=== PATIENT | female | born 1940 | race Caucasian/White ===

== ENCOUNTER 2021-01-12 09:55 | Outpatient (CLI) | payer MEDICARE, SELFPAY ==
--- NOTE | ~2021-01-12 | DEXA_ITS ---
Bone Density Report Name: Rose Marie Caballero Age: 80 Sex: Female Ethnicity: White Date of : 1940 Indication: postmenopausal osteoporosis; height loss; Referring Provider: ODILIA SMITH Study: Bone densitometry was performed. Exam Date: January 12, 2021 Accession number: [id number] Bone Density: Region BMD T-score Z-score Classification AP Spine (L1, L2, L3) 0.764 -2.3 0.2 Osteopenia Femoral Neck (Left) 0.549 -2.7 -0.4 Osteoporosis Total Hip (Left) 0.668 -2.2 -0.2 Osteopenia Total Hip Bilateral Avg 0.685 -2.1 -0.1 Osteopenia Femoral Neck (Right) 0.551 -2.7 -0.4 Osteoporosis Total Hip (Right) 0.701 -2.0 0.0 Osteopenia World Health Organization criteria for BMD impression classify patients as: Normal (T-score at or above -1.0), Osteopenia (T-score between -1.0 and -2.5), or Osteoporosis (T-score at or below -2.5). 10-year Fracture Risk: FRAX not reported because: Some T-score for Spine Total or Hip Total or Femoral Neck at or below -2.5 Previous Exams: Region Exam Age BMD T-score BMD Change BMD Change Date g/cm2 vs Baseline vs Previous AP Spine(L1, L2, L3) 01/12/2021 80 0.764 -2.3 0.022(3.0%) 0.022(3.0%) 01/04/2019 78 0.742 -2.5 Total Hip(Left) 01/12/2021 80 0.668 -2.2 -0.004(-0.6%) -0.004(-0.6%) 01/04/2019 78 0.673 -2.2 Total Hip(Right) 01/12/2021 80 0.701 -2.0 -0.021(-2.9%) -0.021(-2.9%) 01/04/2019 78 0.722 -1.8 *Denotes significance at 95% confidence level, LSC for AP Spine = 0.022 g/cm2, LSC for Total Hip = 0.027 g/cm2 Clinical Information Provided by Patient: Has used the following medications: Vitamin D, Calcium Patient maximum height was 65 Menopause Age: 52 Onset of menses at age 16 Number of children 1 Impression: The patient has osteoporosis, based on the Left Femoral Neck T-score. No significant bone loss was observed. Discussion: INCREASED RISK OF FRACTURE. BONE DENSITY IS UNDESIRABLY LOW AT ONE OR MORE SKELETAL SITES, CONSISTENT WITH POSTMENOPAUSAL OSTEOPOROSIS. This patient's lowest T-score meets the World Health Organization's (WHO) criteria for osteoporosis at one or more sites (T-score -2.5 or below). In untreated patients, the risk of osteoporotic fracture increases approximately two-fold for each 1.0 SD decrease in T-score. Low bone density is not the only risk factor for fracture; also consider factors such as patient's age, frailty or poor health, risk of falling, risk of injury, previous osteopo
== END 2021-01-12 09:56 | disposition home or self-care (01) ==
LOC: ANHIMG 09:56
PROVIDERS: PCP Internal Medicine; Visit Provider Nurse Practitioner
DX: M81.0 Age-related osteoporosis without current pathological fracture (principal); M85.89 Other specified disorders of bone density and structure, multiple sites
CPT/HCPCS: 77080

== ENCOUNTER → 2021-10-18 09:16 | Outpatient (CLI) | payer MEDICARE, SELFPAY ==
--- NOTE | ~2021-10-18 | XR_ITS ---
EXAMINATION: XR knee LT 3V DATE: 10/18/2021 09:46 INDICATION: Left knee pain. TECHNIQUE: 3 views of left knee including standing views were obtained. COMPARISON: None. FINDINGS: Bone alignment is normal. No fracture. There is mild osteoarthritis of medial and patellofe moral compartments characterized by tiny osteophytes. No joint space narrowing. No knee joint effusio n. IMPRESSION: 1. Mild left knee osteoarthritis. Reviewed, dictated and finalized at location A.
== END ==
PROVIDERS: PCP Nurse Practitioner; Visit Provider Nurse Practitioner
DX: M17.12 Unilateral primary osteoarthritis, left knee (principal)
CPT/HCPCS: 73562

== ENCOUNTER → 2023-01-15 10:15 | Outpatient (CLI) | payer MEDICARE, SELFPAY ==
--- NOTE | ~2023-01-15 | DEXA_ITS ---
Bone Density Report Name: VIMAL ANGULO Age: 82 Sex: Female Ethnicity: White Date of : 1940 Indication: osteopenia; monitoring treatment; postmenopausal; height loss; Referring Provider: ODILIA SMITH Study: Bone densitometry was performed. Exam Date: January 15, 2023 Accession number: [id number] Bone Density: Region BMD T-score Z-score Classification AP Spine (L1-L4) 0.785 -2.4 0.3 Osteopenia Femoral Neck (Left) 0.508 -3.1 -0.7 Osteoporosis Total Hip (Left) 0.693 -2.0 0.1 Osteopenia Femoral Neck (Right) 0.542 -2.8 -0.4 Osteoporosis Total Hip (Right) 0.687 -2.1 0.0 Osteopenia Total Hip Mean 0.690 -2.1 0.1 Osteopenia World Health Organization criteria for BMD impression classify patients as: Normal (T-score at or above -1.0), Osteopenia (T-score between -1.0 and -2.5), or Osteoporosis (T-score at or below -2.5). 10-year Fracture Risk: FRAX not reported because: Some T-score for Spine Total or Hip Total or Femoral Neck at or below -2.5 Treated for osteoporosis Previous Exams: Region Exam Age BMD T-score BMD Change BMD Change Date g/cm2 vs Baseline vs Previous AP Spine(L1-L4) 01/15/2023 82 0.785 -2.4 -0.096 -0.066 10/23/2012 72 0.851 -1.8 -0.030* -0.030* 03/12/2010 70 0.881 -1.5 Total Hip(Left) 01/15/2023 82 0.693 -2.0 -0.114* -0.103* 10/23/2012 72 0.796 -1.2 -0.011 -0.011 03/12/2010 70 0.807 -1.1 Total Hip(Right) 01/15/2023 82 0.687 -2.1 -0.122* -0.115* 10/23/2012 72 0.802 -1.1 -0.007 -0.007 03/12/2010 70 0.808 -1.1 *Denotes significance at 95% confidence level, LSC for AP Spine = 0.022 g/cm2, LSC for Total Hip = 0.027 g/cm2 Clinical Information Provided by Patient: Is being treated for osteoporosis Has used the following medications: Fosamax (i.e. alendronate), Synthroid Patient maximum height was 65.5 Menopause Age: 54 No regular weight bearing exercise Onset of menses at age 14 Number of children 1 Impression: The patient has osteoporosis, based on the Left Femoral Neck T-score. The BMD for the Total Hip(Left) decreased, changing by -0.103 since the last DXA exam. The BMD for the Total Hip(Right) decreased, changing by -0.115 since the last DXA exam. Discussion: SIGNIFICANT BONE LOSS OBSERVED. Adherence to therapy (including calcium and vitamin D intake) should be assessed. If compliance is not
== END ==
PROVIDERS: PCP Internal Medicine; Visit Provider Nurse Practitioner
DX: M81.0 Age-related osteoporosis without current pathological fracture (principal); M85.89 Other specified disorders of bone density and structure, multiple sites
CPT/HCPCS: 77080

== ENCOUNTER 2023-09-24 11:09 | Outpatient (CLI) | payer MEDICARE, SELFPAY ==
--- NOTE | ~2023-09-24 | US_ITS ---
EXAMINATION: US venous doppler [facility] DATE: 09/24/2023 12:17 INDICATION: Left lower limb edema and swelling. TECHNIQUE: Grayscale ultrasound images without and with compression and Doppler ultrasound images of the left lower extremity veins were obtained. COMPARISON: None. FINDINGS: The visualized portions of left common femoral vein, profunda (deep) femoral vein, femoral vein, popl iteal vein, peroneal veins, posterior tibial veins, and greater saphenous vein outflow are patent. IMPRESSION: 1. No deep venous thrombosis. Reviewed, dictated and finalized at location A.
== END 2023-09-24 11:10 | disposition home or self-care (01) ==
PROVIDERS: PCP Nurse Practitioner; Visit Provider Nurse Practitioner
DX: R60.9 Edema, unspecified (principal)
CPT/HCPCS: 93971

== ENCOUNTER 2025-01-19 10:35 | Outpatient (CLI) | payer MEDICARE, SELFPAY ==
--- NOTE | ~2025-01-19 | DEXA_ITS ---
Bone Density Report Name: VIMAL ANGULO Age: 85 Sex: Female Ethnicity: White Date of : 1940 Indication: osteopenia; monitoring treatment; height loss; Referring Provider: ODILIA SMITH Study: Bone densitometry was performed. Exam Date: January 19, 2025 Accession number: [id number] Bone Density: Region BMD T-score Z-score Classification AP Spine(L1-L4) 0.838 -1.9 0.9 Osteopenia Femoral Neck (Left) 0.559 -2.6 -0.2 Osteoporosis Total Hip (Left) 0.675 -2.2 0.0 Osteopenia Femoral Neck (Right) 0.528 -2.9 -0.5 Osteoporosis Total Hip (Right) 0.670 -2.2 0.0 Osteopenia Total Hip Mean 0.673 -2.2 0.0 Osteopenia World Health Organization criteria for BMD impression classify patients as: Normal (T-score at or above -1.0), Osteopenia (T-score between -1.0 and -2.5), or Osteoporosis (T-score at or below -2.5). 10-year Fracture Risk: FRAX not reported because: Some T-score for Spine Total or Hip Total or Femoral Neck at or below -2.5 Treated for osteoporosis Previous Exams: -- Region Exam Age BMD T-score BMD Change BMD Change Date g/cm2 vs Baseline vs Previous -- AP Spine (L1-L4) 01/19/2025 85 0.838 -1.9 -4.8%# 6.8%* 01/15/2023 82 0.785 -2.4 -10.9%# -7.8%# 10/23/2012 72 0.851 -1.8 -3.4%* -3.4%* 03/12/2010 70 0.881 -1.5 Total Hip(Left) 01/19/2025 85 0.675 -2.2 -16.3%* -2.5% 01/15/2023 82 0.693 -2.0 -14.1%* -12.9%* 10/23/2012 72 0.796 -1.2 -1.4% -1.4% 03/12/2010 70 0.807 -1.1 Total Hip(Right) 01/19/2025 85 0.670 -2.2 -17.1%* -2.4% 01/15/2023 82 0.687 -2.1 -15.0%* -14.3%* 10/23/2012 72 0.802 -1.1 -0.8% -0.8% 03/12/2010 70 0.808 -1.1 -- *Denotes significance at 95% confidence level, LSC for AP Spine = 0.022 g/cm2, LSC for Total Hip = 0.027 g/cm2 # Denotes dissimilar scan types or analysis methods Clinical Information Provided by Patient: Is being treated for osteoporosis Has used the following medications: Fosamax (i.e. alendronate), Vitamin D Patient maximum height was 65 Menopause Age: 54 No regular weight bearing exercise Does not regularly consume dairy products Onset of menses at age 15 Number of children 1 Impression: The patient has osteoporosis, based on the Right Femoral Neck T-score. No significant bone loss was observed. Discussion: PATIENT UNDER TREATMENT WITH NO SIGNIFICANT BMD LOSS SINCE LAST EXAM. In an untreated patient, BMD typically declines with age. A lack of decline or gain is usually a sign that treatment is efficacious and fracture risk is reduced. It is important to ask patients whether they are taking their medications and to encourage continued and appropriate compliance with their osteoporosis therapies to reduce fracture risk. It is also important to review their risk factors and encourage appropriate calcium and vitamin D intakes, exercise, fall prevention and other lifestyle measures. Follow-Up: Consider a repeat BMD and Vertebral Fracture Assessment (VFA) exam in 2 years or sooner if medically necessary, to reassess this patient's status. Reported by: LUNA on 01/19/2025 10:53:00 AM. Reviewed, dictated and finalized at location A.
== END 2025-01-19 10:36 | disposition home or self-care (01) ==
LOC: MICIMG 10:35
PROVIDERS: PCP Nurse Practitioner; Visit Provider Nurse Practitioner
DX: M81.0 Age-related osteoporosis without current pathological fracture (principal); M85.89 Other specified disorders of bone density and structure, multiple sites
CPT/HCPCS: 77080

== ENCOUNTER 2025-05-24 00:58 | Emergency (ER) | payer MEDICARE, SELFPAY ==
--- NOTE | ~2025-05-24 | CT_ITS ---
EXAMINATION: CT abdomen pelvis w con DATE: 05/24/2025 01:56 INDICATION: Abdominal pain. TECHNIQUE: Computed tomography (CT) of the abdomen and pelvis was performed with 100 mL Omnipaque 350 intravenous contrast. Automated exposure control and iterative reconstruction technique were employed. The dose-length product was 307.17 mGy-cm. COMPARISON: None. FINDINGS: The visualized portions of the lung bases demonstrate mild atelectasis. No pleural effusion. The heart size is normal. No pericardial effusion. The liver and gallbladder are normal. Calcifications in the spleen are consistent with old granulomatous disease. The pancreas and adrenal glands are normal. There are cysts in the kidneys measuring up to 5 mm on the right. There are no dilated loops of bowel. The appendix is normal. There are no pathologically enlarged lymph nodes. There is no free intraperitoneal fluid. There is severe thoracic and lumbar spondylosis. IMPRESSION: 1. No etiology for the patient's symptoms. Reviewed, dictated and finalized at location E. [employer]
[2025-05-24 00:57] VITALS: BP 134/75; PULSE 93; RESP 18; TEMP 36.6; O2SAT 100
[2025-05-24 01:13] LABS: Hematocrit 44.2 % (37.0-47.0); Hemoglobin 14.6 g/dL (12.0-15.0); Immature Granulocyte Percent A 0.2 % (0-0.5); Lymphocytes Absolute Auto 1.07 K/mm3 (0.9-3.2); Mean Corpuscular HGB Conc 33.0 g/dl (32-36); Mean Corpuscular Hemoglobin 32.1 pg (26-34); Mean Corpuscular Volume 97.1 fl (80-100); Nucleated Red Blood Cells Absolute Auto 0.000 K/mm3 (0.0-0.012); Nucleated Red Blood Cells Perc 0.0 % (0.0-0.2); Platelet Count Result 252 k/mm3 (150-375); Red Blood Count 4.55 M/mm3 (4.2-5.4); White Blood Count 6.2 K/mm3 (4.5-10.0)
[2025-05-24 01:24] LABS: Alanine Aminotransferase 20 U/L (6-35); Albumin Level 4.7 g/dL (3.5-5.1); Alkaline Phosphatase 77 U/L (38-126); Anion Gap 7 mmol/L (4-12); Aspartate Amino Transferase 29 U/L (14-36); Bilirubin,Total 0.5 mg/dL (0.2-1.3); Blood Urea Nitrogen 22 mg/dL (7-17); Calcium 9.7 mg/dL (8.4-10.2); Carbon Dioxide 33 mmol/L (22-30); Chloride 99 mmol/L (98-107); Estimated Glomerular Filt Rate > 60; Glucose 106 mg/dL (65-110); Lipase 113 U/L (23-300); Potassium 3.9 mmol/L (3.4-5.0); Sodium 139 mmol/L (137-145); Total Protein 8.7 g/dL (6.3-8.2)
--- NOTE | 2025-05-24 01:49 | PC.NURSE ---
RN had pt attempt to give urine sample. Pt was unsuccessful at this time.
--- NOTE | 2025-05-24 02:06 | ED.ABDPAIN ---
HPI - Abdominal Pain General Chief Complaint: Abdominal Pain <AMBROSIO oHwe Last Filed: 05/25/25 17:17> Stated Complaint: LOW ABD PAIN, POSSIBLE CONSTIPATION <AMBROSIO Howe Last Filed: 05/25/25 17:17> Time Seen by Provider: 05/24/25 01:24 <AMBROSIO Howe Last Filed: 05/25/25 17:17> Source: patient and family <AMBROSIO Howe Last Filed: 05/25/25 17:17> Mode of arrival: ambulatory <AMBROSIO Howe Last Filed: 05/25/25 17:17> Limitations: no limitations <AMBROSIO Howe Last Filed: 05/25/25 17:17> History of Present Illness HPI narrative: This is an 85-year-old female that presents to the emergency department for abdominal pain. Ongoing over the last couple of days. Family member believe she may be constipated. She does not currently take any stool softeners or laxatives. Denies fevers, vomiting, dysuria. <AMBROSIO Howe Last Filed: 05/25/25 17:17> Related Data Home Medications: Home Medications ?Medication ?Instructions ?Recorded ?Confirmed ?Last Taken ?Type fluorometholone 0.1 % eye 1 drp EACH EYE DAILY 02/23/21 04/06/24 Unknown History drops,suspension <AMBROSIO Howe Last Filed: 05/25/25 17:17> Allergies/Adverse Reactions: Allergies Allergy/AdvReac Type Severity Reaction Status Date / Time Penicillins Allergy Mild Rash Verified 04/06/24 07:24 Sulfa (Sulfonamide Allergy Mild pt does Verified 04/06/24 07:24 Antibiotics) not remember <AMBROSIO Howe Last Filed: 05/25/25 17:17> Review of Systems Review of Systems: All systems reviewed & are unremarkable except as noted in HPI and below <AMBROSIO Howe Last Filed: 05/25/25 17:17> [facility] Past Medical History Medical History: Medical History Age-related osteoporosis without current pathological fracture Fuchs' adenoma of right eye Hypothyroidism, unspecified Vitamin D deficiency, unspecified <AMBROSIO Howe Last Filed: 05/25/25 17:17> Surgical History Surgical History: Surgical History History of eye surgery <AMBROSIO Howe Last Filed: 05/25/25 17:17> Family History Family History: Family History Father Family history of heart disease in male family member before age 55 Other Cerebrovascular accident Thyroid disorder <AMBROSIO Howe Last Filed: 05/25/25 17:17> Social History Social History: Social History (Updated 04/06/24 @ 07:23 by Alicia Iyer CMA) Second hand tobacco smoke exposure: Yes Alcohol intake: never Substance use: never Substance use type: does not use Current Housing: Decline to Answer Concerned About Future Housing: Decline to Answer Difficulty Paying Gas/Electric Bills: Decline to Answer Difficulty Paying for Meds: Decline to Answer Currently Unemployed: Decline to Answer Education: Decline to Answer Difficulty w/ Childcare or Family Care: Decline to Answer Living arrangements: alone Occupation/Education: retired Gender identity (if verbalized by the patient): Female Sexual Orientation (if Verbalized by the Patient): Straight or Heterosexual <AMBROSIO Howe Last Filed: 05/25/25 17:17> Exam Narrative: GENERAL: Well-appearing, well-nourished, and in no acute distress. HEAD: Normocephalic, atraumatic. EYES: EOMI. CHEST: Clear to auscultation. No respiratory distress. No wheezes rales or rhonchi HEART: Regular rate and rhythm. No murmur heard. Normal peripheral pulses. ABDOMEN: Soft, nontender, nondistended, normal active bowel sounds. EXTREMITIES: Normal range of motion. No edema. SKIN: Warm, dry, no rash. NEURO: No focal deficits. Alert and oriented x3. PSYCH: Normal mood and affect <Karrie Romero PA-C - Last Filed: 05/25/25 17:17> Course [employer]/PA Physician Supervision This visit was performed by both a physician and an Advanced Practice Provider. I performed all aspects of the Medical Decision Making as documented. <DO Azalia Aranda Last Filed: 05/24/25 05:46> Vital Signs Vital signs: Vital Signs Temperature 97.9 F 05/24/25 00:57 Pulse Rate 93 05/24/25 00:57 Respiratory Rate 18 05/24/25 00:57 Blood Pressure 134/75 05/24/25 00:57 Pulse Oximetry 100 05/24/25 00:57 Oxygen Delivery Room Air 05/24/25 00:57 Temperature 97.9 F 05/24/25 00:57 Pulse Rate 77 05/24/25 04:45 Respiratory Rate 19 05/24/25 04:45 Blood Pressure 118/68 05/24/25 04:45 Pulse Oximetry 99 05/24/25 04:45 Oxygen Delivery Room Air 05/24/25 00:57 <Karrie Romero PA-C - Last Filed: 05/25/25 17:17> Vital Signs Temperature 97.9 F 05/24/25 00:57 Pulse Rate 93 05/24/25 00:57 Respiratory Rate 18 05/24/25 00:57 Blood Pressure 134/75 05/24/25 00:57 Pulse Oximetry 100 05/24/25 00:57 Oxygen Delivery Room Air 05/24/25 00:57 Temperature 97.9 F 05/24/25 00:57 Pulse Rate 77 05/24/25 04:45 Respiratory Rate 19 05/24/25 04:45 Blood Pressure 118/68 05/24/25 04:45 Pulse Oximetry 99 05/24/25 04:45 Oxygen Delivery Room Air 05/24/25 00:57 <DO Azalia Aranda Last Filed: 05/24/25 05:46> MDM - Abdominal Pain MDM Narrative Medical decision making narrative: 85-year-old female Presenting for abdominal pain and constipation. On initial evaluation patient was in no acute distress afebrile, hemodynamic stable. Notable exam findings: Abdomen soft and nontender. Notable lab findings: CBC and CMP without significant abnormalities. Lipase within normal limits. UA clear. Notable imaging findings: CT abdomen/pelvis showed no acute findings. Patient initially seen by Karrie Romero in [place]. On my evaluation, patient was no longer in any pain. Suspect that there is some level of constipation causing her pain at this time. After discussing with the son, he states the patient does not drink very much water so there probably is some level of dehydration causing constipation. She was educated further on adequate p.o. hydration. She was given prescriptions for docusate and senna if needed. They were advised to follow up with her PCP in the next week for re-evaluation. Patient and family were agreeable to this plan. Given strict return precautions. <Bi Land DO - Last Filed: 05/24/25 05:46> Differential Diagnosis Differential diagnosis: Likely calculus of kidney, constipation, diverticulitis and other (UTI) <Karrie Romero PA-C - Last Filed: 05/25/25 17:17> Lab Data Attestation: I reviewed the patient's lab results. <Karrie Romero PA-C - Last Filed: 05/25/25 17:17> Result diagrams: 05/24/25 01:05 05/24/25 01:05 <Karrie Romero PA-C - Last Filed: 05/25/25 17:17> Labs: Lab Results 05/24/25 05/24/25 Range/Units 01:05 02:23 WBC 6.2 (4.5-10.0) K/mm3 RBC 4.55 (4.2-5.4) M/mm3 Hgb 14.6 (12.0-15.0) g/dL Hct 44.2 (37.0-47.0) % MCV 97.1 (80-100) fl MCH 32.1 (26-34) pg MCHC 33.0 (32-36) g/dl RDW 12.0 (11.5-14.5) % Plt Count 252 (150-375) k/mm3 MPV 10.5 H (7.4-10.4) fl Immature Gran % (Auto) 0.2 (0-0.5) % Neut % (Auto) 74.1 H (45.5-73.1) % Lymph % (Auto) 17.4 L (18.3-44.2) % Dawson % (Auto) 6.2 (2.6-8.5) % Eos % (Auto) 1.1 (0-4.4) % Baso % (Auto) 1.0 (0.2-1.2) % Lymph # (Auto) 1.07 (0.9-3.2) K/mm3 Dawson # (Auto) 0.4 (0.1-0.6) K/mm3 Eos # (Auto) 0.1 (0-0.3) K/mm3 Baso # (Auto) 0.1 (0.0-0.1) K/mm3 Abs Immat Gran (auto) 0.01 (0.00-0.031) K/mm3 Absolute Neuts (auto) 4.6 (1.3-6.7) K/mm3 Absolute Nucleated RBC 0.000 (0.0-0.012) K/mm3 Nucleated RBC % 0.0 (0.0-0.2) % Sodium 139 (137-145) mmol/L Potassium 3.9 (3.4-5.0) mmol/L Chloride 99 (98-107) mmol/L Carbon Dioxide 33 H (22-30) mmol/L Anion Gap 7 (4-12) mmol/L BUN 22 H (7-17) mg/dL Creatinine 0.71 (0.7-1.0) mg/dL Estim Creat Clear Calc Not Reportable Estimated GFR > 60 (59 - ) Glucose 106 (65-110) mg/dL Calcium 9.7 (8.4-10.2) mg/dL Total Bilirubin 0.5 (0.2-1.3) mg/dL AST 29 (14-36) U/L ALT 20 (6-35) U/L Alkaline Phosphatase 77 (38-126) U/L Total Protein 8.7 H (6.3-8.2) g/dL Albumin 4.7 (3.5-5.1) g/dL Lipase 113 (23-300) U/L Urine Color Yellow (Yellow) Urine Appearance Clear (Clear) Urine pH 5.5 (5.0-9.0) Ur Specific [place] > 1.045 H (1.001-1.035) Urine Protein Negative (Negative) mg/dL Urine Glucose (UA) Negative (Negative) mg/dL Urine Ketones Negative (Negative) mg/dL Ur Blood (Man) Negative (Negative) Urine Nitrate Negative (Negative) Urine Bilirubin Negative (Negative) Urine Urobilinogen 1.0 (<2.0) mg/dL Leukocyte Esterase Rfl Negative (Negative) ISAAC/UL <Karrie Romero PA-C - Last Filed: 05/25/25 17:17> Lab Results 05/24/25 05/24/25 Range/Units 01:05 02:23 WBC 6.2 (4.5-10.0) K/mm3 RBC 4.55 (4.2-5.4) M/mm3 Hgb 14.6 (12.0-15.0) g/dL Hct 44.2 (37.0-47.0) % MCV 97.1 (80-100) fl MCH 32.1 (26-34) pg MCHC 33.0 (32-36) g/dl RDW 12.0 (11.5-14.5) % Plt Count 252 (150-375) k/mm3 MPV 10.5 H (7.4-10.4) fl Immature Gran % (Auto) 0.2 (0-0.5) % Neut % (Auto) 74.1 H (45.5-73.1) % Lymph % (Auto) 17.4 L (18.3-44.2) % Dawson % (Auto) 6.2 (2.6-8.5) % Eos % (Auto) 1.1 (0-4.4) % Baso % (Auto) 1.0 (0.2-1.2) % Lymph # (Auto) 1.07 (0.9-3.2) K/mm3 Dawson # (Auto) 0.4 (0.1-0.6) K/mm3 Eos # (Auto) 0.1 (0-0.3) K/mm3 Baso # (Auto) 0.1 (0.0-0.1) K/mm3 Abs Immat Gran (auto) 0.01 (0.00-0.031) K/mm3 Absolute Neuts (auto) 4.6 (1.3-6.7) K/mm3 Absolute Nucleated RBC 0.000 (0.0-0.012) K/mm3 Nucleated RBC % 0.0 (0.0-0.2) % Sodium 139 (137-145) mmol/L Potassium 3.9 (3.4-5.0) mmol/L Chloride 99 (98-107) mmol/L Carbon Dioxide 33 H (22-30) mmol/L Anion Gap 7 (4-12) mmol/L BUN 22 H (7-17) mg/dL Creatinine 0.71 (0.7-1.0) mg/dL Estim Creat Clear Calc Not Reportable Estimated GFR > 60 (59 - ) Glucose 106 (65-110) mg/dL Calcium 9.7 (8.4-10.2) mg/dL Total Bilirubin 0.5 (0.2-1.3) mg/dL AST 29 (14-36) U/L ALT 20 (6-35) U/L Alkaline Phosphatase 77 (38-126) U/L Total Protein 8.7 H (6.3-8.2) g/dL Albumin 4.7 (3.5-5.1) g/dL Lipase 113 (23-300) U/L Urine Color Yellow (Yellow) Urine Appearance Clear (Clear) Urine pH 5.5 (5.0-9.0) Ur Specific [place] > 1.045 H (1.001-1.035) Urine Protein Negative (Negative) mg/dL Urine Glucose (UA) Negative (Negative) mg/dL Urine Ketones Negative (Negative) mg/dL Ur Blood (Man) Negative (Negative) Urine Nitrate Negative (Negative) Urine Bilirubin Negative (Negative) Urine Urobilinogen 1.0 (<2.0) mg/dL Leukocyte Esterase Rfl Negative (Negative) ISAAC/UL <Bi Land DO - Last Filed: 05/24/25 05:46> Imaging Data Attestation: I personally reviewed and interpreted this imaging study as follows: <Bi Land DO - Last Filed: 05/24/25 05:46> Radiologist's impression: ITS Impressions Abdomen/Pelvis CT 05/24/25 06:56 IMPRESSION: 1. No etiology for the patient's symptoms. <Karrie Romero PA-C - Last Filed: 05/25/25 17:17> ITS Impressions Abdomen/Pelvis CT 05/24/25 06:56 IMPRESSION: 1. No etiology for the patient's symptoms. CT abdomen/pelvis: No acute findings <DO Azalia Aranda Last Filed: 05/24/25 05:46> Critical Care Time Critical Care Time Critical Care Time: No <Karrie Romero PA-C - Last Filed: 05/25/25 17:17> Discharge Plan Discharge Clinical Impression: Abdominal pain Qualifiers: Abdominal location: unspecified location Qualified Code(s): R10.9 - Unspecified abdominal pain Constipation Qualifiers: Constipation type: unspecified constipation type Qualified Code(s): K59.00 - Constipation, unspecified <Karrie Romero PA-C - Last Filed: 05/25/25 17:17> Patient Disposition: Home <AMBROSIO Howe Last Filed: 05/25/25 17:17> Condition: Stable <AMBROSIO Howe Last Filed: 05/25/25 17:17> Instructions: Antibiotic Form, Constipation (ED), Abdominal Pain (ED) <AMBROSIO Howe Last Filed: 05/25/25 17:17> Additional Instructions: Your CT scan was reassuring. Your pain was likely due to constipation. Your given prescriptions for docusate and senna. Please be sure to drink plenty of water at least 32 oz daily but would recommend more like 72 oz. Follow-up with your PCP in the next week for re-evaluation. Return to the ED for any new or worsening symptoms. <Karrie Romero PA-C - Last Filed: 05/25/25 17:17> Patient Language: Austrian <Karrie Romero PA-C - Last Filed: 05/25/25 17:17> Prescriptions: New docusate sodium 100 mg capsule 100 mg PO DAILY PRN (Reason: constipation) Qty: 30 0RF senna 8.6 mg capsule 8.6 mg PO DAILY PRN (Reason: constipation) Qty: 30 0RF No Action fluorometholone 0.1 % drops,suspension 1 drp EACH EYE DAILY alendronate 70 mg tablet See Rx Instructions .ROUTE .COMPLEX Qty: 12 3RF Dose Instruction: TAKE 1 TABLET BY MOUTH WEEKLY WITH 8 OZ OF PLAIN WATER 30 MINUTES BEFORE FIRST FOOD, DRINK OR MEDS. STAY UPRIGHT FOR 30 MINS Rx Instructions: TAKE 1 TABLET BY MOUTH WEEKLY WITH 8 OZ OF PLAIN WATER 30 MINUTES BEFORE FIRST FOOD, DRINK OR MEDS. STAY UPRIGHT FOR 30 MINS levothyroxine [Synthroid] 75 mcg tablet See Rx Instructions .ROUTE .COMPLEX Qty: 90 3RF Dose Instruction: TAKE 1 TABLET BY MOUTH DAILY Rx Instructions: TAKE 1 TABLET BY MOUTH DAILY <Karrie Romero PA-C - Last Filed: 05/25/25 17:17> Follow-up/Referrals: Abilio Butt, [employer] [Primary Care Provider, Internal Medicine] <Karrie Romero PA-C - Last Filed: 05/25/25 17:17>
[2025-05-24 02:25] VITALS: BP 109/70; PULSE 86; RESP 18; O2SAT 98
[2025-05-24 02:33] LABS: Add Urine Microscopic? NO; Appearance Urine Clear (Clear); Glucose Urine UA Negative (Negative); Leukocyte Esterase Ur Negative LEU/UL (Negative); Nitrate Urine Negative (Negative); Specific Grav Ur > 1.045 (1.001-1.035)
[2025-05-24 04:45] VITALS: BP 118/68; PULSE 77; RESP 19; O2SAT 99
== END 2025-05-24 04:46 | disposition home or self-care (01) ==
PROVIDERS: Student in an Organized Health Care Education/Training Program; Emergency Provider Physician Assistant; PCP Nurse Practitioner
DX: K59.00 Constipation, unspecified (principal)
CPT/HCPCS: 36415; 74177; 80053; 81003; 83690; 85025; 99284; Q9967